=== PATIENT | male | born 2000 | race Native Hawaiian/Other Pacific Islander ===

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

== ENCOUNTER 2021-04-20 14:50 | Emergency (ER) | payer BC ==
[~2021-04-20] VITALS: Ht 193 cm; Wt 195.0 kg
[2021-04-20 19:10] VITALS: BP 148/88; TEMP 97.4
== END 2021-04-20 19:10 | disposition short-term general hospital (02) ==
LOC: ED 14:50
DX: S12.091A Other nondisplaced fracture of first cervical vertebra, initial encounter for closed fracture (principal); E66.01 Morbid (severe) obesity due to excess calories; S00.81XA Abrasion of other part of head, initial encounter; S01.21XA Laceration without foreign body of nose, initial encounter; S30.1XXA Contusion of abdominal wall, initial encounter; Z11.52 Encounter for screening for COVID-19; V86.55XA Driver of 3- or 4- wheeled all-terrain vehicle (ATV) injured in nontraffic accident, initial encounter; Y92.096 Garden or yard of other non-institutional residence as the place of occurrence of the external cause
CPT/HCPCS: 87635; 90715; 96374; 99284; J1885; U0003

== ENCOUNTER 2022-01-16 21:10 | Emergency (ER) | payer BC ==
[~2022-01-16] VITALS: Ht 193 cm; Wt 176.9 kg
[2022-01-16 21:24] VITALS: BP 168/85; TEMP 98
== END 2022-01-17 01:04 | disposition home or self-care (01) ==
LOC: ED 21:24
PROC: 2W3KX1Z Immobilization of Left Finger using Splint (ICD-10-PCS; principal; 2022-01-16)
DX: S62.615A Displaced fracture of proximal phalanx of left ring finger, initial encounter for closed fracture (principal); S50.12XA Contusion of left forearm, initial encounter; S00.83XA Contusion of other part of head, initial encounter; S30.1XXA Contusion of abdominal wall, initial encounter; S13.4XXA Sprain of ligaments of cervical spine, initial encounter; S16.1XXA Strain of muscle, fascia and tendon at neck level, initial encounter; S80.01XA Contusion of right knee, initial encounter; S80.211A Abrasion, right knee, initial encounter; R16.1 Splenomegaly, not elsewhere classified; E66.01 Morbid (severe) obesity due to excess calories; V53.5XXA Driver of pick-up truck or van injured in collision with car, pick-up truck or van in traffic accident, initial encounter; Y92.488 Other paved roadways as the place of occurrence of the external cause
CPT/HCPCS: 96372; 99283; J1885